=== PATIENT | female | born 1995 | race Caucasian/White ===

== ENCOUNTER 2018-05-01 21:49 | Outpatient (CLI) | payer MEDICAID ==
[2018-05-01 22:05] VITALS: BP 131/78
[2018-05-01 22:53] LABS: BASOPHILS % (AUTO) 0.3 %; EOSINOPHILS # (AUTO) 0.1 10^3/uL (0.0-0.7); EOSINOPHILS % (AUTO) 0.7 %; HGB - HEMOGLOBIN 11.8 g/dL (12.0-16.0); LYMPHOCYTES # (AUTO) 2.2 10^3/uL (1.5-3.5); LYMPHOCYTES % (AUTO) 21.8 %; MEAN CORPUSCULAR HEMOGLOBIN 31.6 pg (27.0-31.0); MEAN CORPUSCULAR HGB CONC 34.1 g/dL (32.0-36.0); MEAN CORPUSCULAR VOLUME 92.7 fL (81.0-99.0); MEAN PLATELET VOLUME 8.9 fL (7.9-10.8); MONOCYTES # (AUTO) 0.9 10^3/uL (0.0-1.0); NEUTROPHILS % (AUTO) 68.2 %; PLT - PLATELET COUNT 230 10^3/uL (130-450); RED BLOOD COUNT 3.73 10^6/uL (4.20-5.40); RED CELL DISTRIBUTION WIDTH 12.9 % (12.0-15.0); WHITE BLOOD COUNT 10.2 x10^3/uL (4.8-10.8)
[2018-05-01 22:55] LABS: BILIRUBIN,URINE NEGATIVE (NEGATIVE); GLUCOSE, URINE (UA) NEGATIVE (NEGATIVE); KETONES,URINE (UA) NEGATIVE (NEGATIVE); LEUKOCYTE ESTERASE, URINE NEGATIVE (NEGATIVE); NITRITE,URINE NEGATIVE (NEGATIVE); OCCULT BLOOD,URINE NEGATIVE (NEGATIVE); PH,URINE 6.5 PH (5.0-7.5); PROTEIN,URINE NEGATIVE (NEGATIVE); UROBILINOGEN,URINE 0.2 (NORMAL) E.U./dL (NORMAL)
[2018-05-01 22:57] LABS: CLARITY,URINE CLEAR (CLEAR)
[2018-05-01 23:34] LABS: RUPTURE OF MEMBRANES PLUS NEGATIVE (NEGATIVE)
--- NOTE | 2018-05-02 04:33 | HISTORY & PHYSICAL EXAMINATION ---
DATE OF SERVICE: 05/01/2018 Physician: Daniel Messina MD IDENTIFICATION: The patient is a 22-year-old G2, P0, AB1 female whose EDC is 09/06/2018, diagnosed b y early visits, as well as 20-week ultrasound. She is currently 21 weeks and 5 days. CHIEF COMPLAINT: Right lower abdominal pain. HISTORY OF PRESENT ILLNESS: The patient states roughly 1 week ago she developed right lower quadrant pain. It became much worse today at about 8 o'clock. She describes the pain as a 9/10. She denies any change in her bowel function. She denies any nausea, vomiting or diarrhea. She states that it starts in the stomach and goes into the groin. She has taken Tylenol without help. She denies any u rgency, frequency or dysuria. She has a history of having bladder infections when she was in [facility]. She has noted some cramping. She notes good motion. heart rate has been running 135-146. She denies any recent activities, such as heavy lifting. PAST MEDICAL HISTORY: Positive for an irregular heartbeat with pauses. She has had a normal EKG. S he also has a history of asthma, as well as depression and anxiety. PAST SURGICAL HISTORY: [place] teeth. ALLERGIES: NONE KNOWN. CURRENT MEDICATIONS: vitamins and vitamin D. HABITS: The patient denies use of alcohol, tobacco, street or addictive drugs. SOCIAL HISTORY: The patient is and lives with her spouse. 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 PHYSICAL EXAMINATION GENERAL: Well-developed, well-nourished, white female, does not appear to be in any distress. She i s moving easily, talking in full sentences, appropriately laugh. Does not wince with motion. My ass essment is that her pain is probably more in the 2 to 3 out of 10. VITAL SIGNS: Temperature is 36.6, blood pressure 131/78, pulse 80, respirations 18, 99% saturation. HEENT: Pupils are equal, round. Extraocular muscles are intact. No evidence of any scleral icterus . Mouth is clear. HEART: Regular rate and rhythm without murmurs. LUNGS: Lung graves are clear without rales or wheezes. BACK: Shows tenderness over the SI joints. She also has tenderness of the paraspinal muscles, which go all the way up to the thoracic area. Percussion of the spine yields more tenderness to the muscu larity than it does to the CVA area. This is predominantly on the right-side. ABDOMEN: Gravid. Uterus is about 2 fingerbreadths above the umbilicus. The uterus itself is nonten christopher. There is tenderness at the groin itself. There is no evidence of any kind of rebound on the ab domen. There are good bowel sounds noted throughout. The patient has recently had an ultrasound, wh ich is noted to be within normal limits. IMPRESSION: A 22-year-old G2, P0, 21.5 weeks, with right lower abdominal pain. At this point, my rivera spicion is that of round ligament pain because it is duplicated with motion, twisting, turning, as we ll as there is no rebound noted on the lateral portion of the abdomen. She has no GI complaints eith er, so the chance of an appendicitis I think is very remote at this time. Her white count as well as urine are both negative and do not show signs of a cystitis or leukocytosis. PLAN: The patient will be placed at limited activity for the next 4 days. Should things get progres sively worse, she should return. TD: 05/02/2018 00:10
== END 2018-05-01 23:45 | disposition home or self-care (01) ==
LOC: WFO 21:49 → FBP 21:51 → WFO 23:45
PROVIDERS: ATTEND Obstetrics & Gynecology
DX: O26.899 Other specified pregnancy related conditions, unspecified trimester (principal); Z3A.21 21 weeks gestation of pregnancy
CPT/HCPCS: 81001; 81003; 84112; 85025; 87086; 99214

== ENCOUNTER 2018-07-21 16:13 | Emergency (ER) | payer MEDICAID ==
--- NOTE | 2018-07-21 16:39 | ED Physician Documentation ---
History of Present Illness - Stated complaint Stated Complaint: CARDIAC ISSUES - Chief complaint Chief Complaint: Cardiac - History obtained from History obtained from: Patient, Family - History of Present Illness Timing: Today - Additonal information Additional information: 22-year-old female who is 33 weeks was out running errands today and when she returned home she developed some palpitations in her chest associated with some cyanosis on her fingernails. She states that she has had this type of a palpitation in her chest such she was 15 years old and she will have these episodes infrequently. She describes episode as it pain at that tip of her heart that radiates up into her chest. An episode. Review of Systems Constitutional: denies: Fever, Chills, Myalgias, Fatigue Eyes: denies: Decreased vision Ears: denies: Ear pain Nose: denies: Congestion Throat: denies: Sore throat Cardiac: reports: Chest pain / pressure, Palpitations. denies: Pedal edema, Calf pain Respiratory: denies: Dyspnea, Cough GI: denies: Abdominal Pain, Nausea, Vomiting : denies: Dysuria, Frequency PD PAST MEDICAL HISTORY - Past Medical History Respiratory: Asthma - Past Surgical History Past Surgical History: No - Present Medications Home Medications: Ambulatory Orders Medication Instructions Recorded Confirmed Controll Pills 07/15/15 07/15/15 Ibuprofen 600 mg PO Q8H #60 tablet 07/15/15 LORazepam [Ativan] 0.5 mg PO Q6H PRN #10 tablet 07/15/15 - Allergies Allergies/Adverse Reactions: Allergies Allergy/AdvReac Type Severity Reaction Status Date / Time No Known Drug Allergies Allergy Verified 01/29/14 10:42 - Social History Does the pt smoke?: No Smoking Status: Never smoker Does the pt drink ETOH?: No Does the pt have substance abuse?: Yes - Immunizations Immunizations are current?: Yes - POLST Patient has POLST: No PD ED PE NORMAL - Vitals Vital signs reviewed: Yes (hypertensive diastolic ) - General General: Alert and oriented X 3, Well developed/nourished - HEENT HEENT: Atraumatic, PERRL, EOMI - Neck Neck: Supple, no meningeal sign, No bony TTP - Cardiac Cardiac: RRR, No murmur - Respiratory Respiratory: No respiratory distress, Clear bilaterally - Abdomen Abdomen: Soft, Other (mild epigastric tenderness and LUQ tenderness. 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 2-12 intact, No motor deficit, No sensory deficit, Normal speech Eye Opening: Spontaneous Motor: Obeys Commands Verbal: Oriented GCS Score: 15 - Psych Psych: Normal mood, Normal affect Results - Vitals Vitals: Vital Signs - 24 hr 07/21/18 07/21/18 16:16 17:34 Temperature 36.6 C Heart Rate 99 92 Respiratory 18 16 Rate Blood Pressure 130/103 H 124/80 O2 Saturation 98 98 Oxygen O2 Source Room air - EKG (time done) 1620 Rate: Rate (enter#) (90) Rhythm: Other (PVC's) Ischemia: Non specific changes (borderline ST elevation isolated to III) Compare to prior EKG: Changed from prior EKG (SPT PVC's have developed. ) Computer interpretation: Disagree with computer (I do not see ST elevation in inferior leads I do see this isolate to lead III) - Labs Labs: Laboratory Tests 07/21/18 07/21/18 07/21/18 16:45 16:45 16:45 WBC 9.5 RBC 3.95 L Hgb 12.2 Hct 35.3 L MCV 89.4 MCH 30.8 MCHC 34.5 RDW 12.4 Plt Count 267 MPV 9.0 Neut # (Auto) 7.3 H Lymph # (Auto) 1.4 L Adams # (Auto) 0.7 Eos # (Auto) 0.1 Baso # (Auto) 0.0 Absolute Nucleated RBC 0.00 Nucleated RBC % 0.0 Sodium 136 Potassium 3.6 Chloride 102 Carbon Dioxide 26 Anion Gap 8.0 BUN 12 Creatinine 0.5 Estimated GFR (MDRD) 157 Glucose 129 H Calcium 8.6 Total Bilirubin 0.4 AST 20 ALT 13 Alkaline Phosphatase 79 Troponin I < 0.04 Total Protein 6.6 L Albumin 3.1 L Globulin 3.5 Albumin/Globulin Ratio 0.9 L Lipase 28 Urine Color Urine Clarity Urine pH Ur Specific [place] Urine Protein Urine Glucose (UA) Urine Ketones Urine Occult Blood Urine Nitrite Urine Bilirubin Urine Urobilinogen Ur Leukocyte Esterase Ur Microscopic Review Urine Culture Comments 07/21/18 17:23 WBC RBC Hgb Hct MCV MCH MCHC RDW Plt Count MPV Neut # (Auto) Lymph # (Auto) Adams # (Auto) Eos # (Auto) Baso # (Auto) Absolute Nucleated RBC Nucleated RBC % Sodium Potassium Chloride Carbon Dioxide Anion Gap BUN Creatinine Estimated GFR (MDRD) Glucose Calcium Total Bilirubin AST ALT Alkaline Phosphatase Troponin I Total Protein Albumin Globulin Albumin/Globulin Ratio Lipase Urine Color YELLOW Urine Clarity CLEAR Urine pH 6.0 Ur Specific [place] >=1.030 H Urine Protein NEGATIVE Urine Glucose (UA) NEGATIVE Urine Ketones NEGATIVE Urine Occult Blood NEGATIVE Urine Nitrite NEGATIVE Urine Bilirubin NEGATIVE Urine Urobilinogen 0.2 (NORMAL) Ur Leukocyte Esterase NEGATIVE Ur Microscopic Review NOT INDICATED Urine Culture Comments NOT INDICATED PD MEDICAL DECISION MAKING - ED course Complexity details: reviewed old records, reviewed results, re-evaluated patient, considered differential, d/w patient, d/w family ED course: 22 y/o female with "palpitations" and findings of PVC's on work up with no other specific findings. She was not symptomatic with the PVC's and the only time she had symptoms in the ED her monitor was NSR. My suspicion with this young gravid female is that she has had a panic attack and I have shared this with the patient. She has chest wall tenderness associated with these episodes today and this does not fit with panic attack but she has had this previously as well and was diagnosed with costochondritis. The rest of her work up does fit. She is discharged with instructions for palpitations and chest wall pain. The patient is evaluated by OB nurse and has reactive strip and no contractions. Departure - Departure Disposition: 01 Home, Self Care Clinical Impression: Palpitations, Chest wall pain Condition: Stable Instructions: ED Chest Pain Costochondritis, ED Palpitations Follow-Up: Shelli Encarnacion, LMW [Physician No Access] -
[2018-07-21 16:54] LABS: BASOPHILS % (AUTO) 0.3 %; EOSINOPHILS # (AUTO) 0.1 10^3/uL (0.0-0.7); EOSINOPHILS % (AUTO) 0.6 %; HGB - HEMOGLOBIN 12.2 g/dL (12.0-16.0); LYMPHOCYTES # (AUTO) 1.4 10^3/uL (1.5-3.5); LYMPHOCYTES % (AUTO) 14.6 %; MEAN CORPUSCULAR HEMOGLOBIN 30.8 pg (27.0-31.0); MEAN CORPUSCULAR HGB CONC 34.5 g/dL (32.0-36.0); MEAN CORPUSCULAR VOLUME 89.4 fL (81.0-99.0); MONOCYTES # (AUTO) 0.7 10^3/uL (0.0-1.0); MONOCYTES % (AUTO) 7.1 %; NEUTROPHILS # (AUTO) 7.3 10^3/uL (1.5-6.6); NEUTROPHILS % (AUTO) 77.4 %; PLT - PLATELET COUNT 267 10^3/uL (130-450); RED BLOOD COUNT 3.95 10^6/uL (4.20-5.40); RED CELL DISTRIBUTION WIDTH 12.4 % (12.0-15.0); WHITE BLOOD COUNT 9.5 x10^3/uL (4.8-10.8)
[2018-07-21 17:05] LABS: ALBUMIN 3.1 g/dL (3.2-5.5); ALBUMIN/GLOBULIN RATIO 0.9 (1.0-2.2); BILIRUBIN,TOTAL 0.4 mg/dL (0.2-1.0); CALCIUM 8.6 mg/dL (8.5-10.3); CREATININE 0.5 mg/dL (0.4-1.0); TOTAL PROTEIN 6.6 g/dL (6.7-8.2)
[2018-07-21 17:41] LABS: BILIRUBIN,URINE NEGATIVE (NEGATIVE); GLUCOSE, URINE (UA) NEGATIVE (NEGATIVE); KETONES,URINE (UA) NEGATIVE (NEGATIVE); LEUKOCYTE ESTERASE, URINE NEGATIVE (NEGATIVE); NITRITE,URINE NEGATIVE (NEGATIVE); OCCULT BLOOD,URINE NEGATIVE (NEGATIVE); PROTEIN,URINE NEGATIVE (NEGATIVE); UROBILINOGEN,URINE 0.2 (NORMAL) E.U./dL (NORMAL)
[2018-07-21 17:44] LABS: CLARITY,URINE CLEAR (CLEAR)
[2018-07-21 18:22] VITALS: BP 113/67
== END 2018-07-21 18:22 | disposition home or self-care (01) ==
LOC: ED 16:13
DX: O26.893 Other specified pregnancy related conditions, third trimester (principal); R00.2 Palpitations; R07.89 Other chest pain; R94.31 Abnormal electrocardiogram [ECG] [EKG]; Z3A.33 33 weeks gestation of pregnancy
CPT/HCPCS: 36415; 80053; 81001; 81003; 83690; 84484; 85025; 87086; 93005; 99283

== ENCOUNTER 2018-10-14 20:35 | Outpatient (CLI) | payer MEDICAID | END 2018-10-14 20:36 | disposition critical access hospital (66) | LOC: EMS 20:35 | PROVIDERS: ATTEND Surgery | DX: R10.9 Unspecified abdominal pain (principal); M54.5 Low back pain; R30.9 Painful micturition, unspecified | CPT/HCPCS: A0425; A0429 ==

== ENCOUNTER 2018-10-14 20:53 | Emergency (ER) | payer MEDICAID ==
[2018-10-14 22:31] LABS: BILIRUBIN,URINE NEGATIVE (NEGATIVE); GLUCOSE, URINE (UA) NEGATIVE (NEGATIVE); KETONES,URINE (UA) NEGATIVE (NEGATIVE); LEUKOCYTE ESTERASE, URINE MODERATE (NEGATIVE); NITRITE,URINE NEGATIVE (NEGATIVE); OCCULT BLOOD,URINE LARGE (NEGATIVE); PROTEIN,URINE 30 mg/dL (NEGATIVE); UROBILINOGEN,URINE 0.2 (NORMAL) E.U./dL (NORMAL)
[2018-10-14 22:41] LABS: BACTERIA,URINE Many /HPF (None Seen); CLARITY,URINE CLOUDY (CLEAR); RBC,URINE TNTC /HPF (0-5); SQUAMOUS EPITHELIAL CELL,UR RARE Squamous (<= Few)
[2018-10-14] MEDS ORDERED: cephALEXin 250 MG CAPSULE PO STA (23:19)
[2018-10-14] MEDS ORDERED: PHENAZOPYRIDINE 100 MG TABLET PO STA (23:19)
[2018-10-14] MEDS ORDERED: NAPROXEN 250 MG TABLET PO STA (23:22)
--- NOTE | 2018-10-14 23:22 | ED Physician Documentation ---
PD HPI FEMALE - Stated complaint Stated Complaint: UTI - Chief complaint Chief Complaint: UTI - Additional information Additional information: 22-year-old female presents the emergency department with dysuria which has progressed throughout the day and reports of lower abdominal/suprapubic and lower back discomfort. No fevers. Symptoms are described as moderate. No other associated symptoms. 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 : None HEENT: None Psych: Anxiety, Panic attacks Musculoskeletal: None Derm: None - Past Surgical History Past Surgical History: No - Present Medications Home Medications: Ambulatory Orders Medication Instructions Recorded Confirmed Cephalexin [Keflex] 500 mg PO BID #14 capsule 10/14/18 [id number]/Dha/Fish Oil 2 each PO DAILY 10/14/18 10/14/18 [ Gummies] - Allergies Allergies/Adverse Reactions: Allergies Allergy/AdvReac Type Severity Reaction Status Date / Time No Known Drug Allergies Allergy Verified 10/14/18 22:15 - Social History Does the pt smoke?: No Smoking Status: Never smoker Does the pt drink ETOH?: No Does the pt have substance abuse?: No - Immunizations Immunizations are current?: Yes - POLST Patient has POLST: No PD ED PE NORMAL - General General: Alert and oriented X 3, No acute distress - HEENT HEENT: Atraumatic, PERRL, EOMI, Ears normal - Cardiac Cardiac: RRR - Respiratory Respiratory: No respiratory distress - Abdomen Abdomen: Soft, Non tender, Non distended - Back Back: No CVA TTP - Derm Derm: Normal color - Extremities Extremities: No deformity - Neuro Neuro: Alert and oriented X 3, Normal speech - Psych Psych: Normal affect Results - Vitals Vitals: Vital Signs - 24 hr 10/14/18 10/14/18 10/14/18 21:02 22:17 23:42 Temperature 36.4 C L 37.4 C 37.2 C Heart Rate 77 85 78 Respiratory 22 18 18 Rate Blood Pressure 96/65 123/80 96/66 O2 Saturation 100 98 97 Oxygen O2 Source Room air - Labs Labs: Laboratory Tests 10/14/18 22:29 Urine Color YELLOW Urine Clarity CLOUDY Urine pH 6.0 Ur Specific [place] 1.025 Urine Protein 30 H Urine Glucose (UA) NEGATIVE Urine Ketones NEGATIVE Urine Occult Blood LARGE H Urine Nitrite NEGATIVE Urine Bilirubin NEGATIVE Urine Urobilinogen 0.2 (NORMAL) Ur Leukocyte Esterase MODERATE H Urine RBC TNTC H Urine WBC >25 H Ur Squamous Epith Cells RARE Squamous Urine Bacteria Many H Ur Microscopic Review INDICATED Urine Culture Comments INDICATED PD MEDICAL DECISION MAKING - ED course ED course: The patient has an acute urinary tract infection, the patient appears appropriate for discharge and ongoing outpatient management. I discussed warning signs and recommended returning for any worsening or any concerns. Departure - Departure Disposition: 01 Home, Self Care Clinical Impression: Acute cystitis Qualifiers: Hematuria presence: with hematuria Qualified Code(s): N30.01 - Acute cystitis with hematuria Condition: Good Instructions: ED UTI Cystitis Female Prescriptions: Cephalexin [Keflex] 500 mg PO BID #14 capsule Comments: Please follow up with Primary Care in 7 days Please return to the emergency department for worsening symptoms or any concerns Discharge Date/Time: 10/15/18 00:00
[2018-10-14 23:42] VITALS: BP 96/66
== END 2018-10-15 | disposition home or self-care (01) ==
LOC: EDUNIT# → ED 20:53
DX: N30.01 Acute cystitis with hematuria (principal)
CPT/HCPCS: 81001; 87077; 87086; 87181; 99283; A9270; 81003